=== PATIENT | female | born 1995 | race Caucasian/White ===

== ENCOUNTER 2021-02-19 13:36 | Emergency (ER) | payer OTHER, MEDICAID ==
[~2021-02-19] VITALS: Ht 162.6 cm; Wt 99.8 kg
[~2021-02-19 13:36] MED LIST: ACETAMINOPHEN-1 EAC1 PO; ALBUTEROL2.5 MG/3 M IH; AZITHROMYCIN 2250 MG PO; CARAFATE 1 GM TA1 G1 PO; CELEXA 20 MG TA20 M1; CITRATE OF MAG296 ML PO; DIPHENHIST50 MG PO; DOXYCYCLINE 10100 M1 PO; ELIMITE60 GM TP; FLONASE 0.05%50 MCG NASAL; IRON325 PO; LEVAQUIN 500 M500 MG PO; MEDROLDOSEPACK PO; MOTRIN; NIX TP; NOHOMEMEDICATIONS; NORCO 5-325 TA1 EACH PO; ONDANSETRON HCL4 M3 PO; ORTHO TRI-CYCL1 EAC1; ORTHO TRI-CYCL1 EACH PO; PHENERGAN 25 MG25 M1 PO; PREDNISONE 10 M10 MG PO; PREDNISONE 20 M20 M1 PO; PROAIR HFA8.5 GM INH; PROMETHAZINE D480 ML PO; PROMETHAZINE-D120 ML PO; SARNA ANTI-ITC222 ML TP; TORADOL 10 MG T10 MG PO; TRINATE TABLET1 TAB PO; TYLENOL325 MG PO; ULTRAM 50MG TAB50 MG PO; VENTOLIN HFA 1818 GM INH; VENTOLIN17 GM INH; ZANTAC 150MG T150 M1 PO; ZOFRAN 4 MG ORAL4 MG; ZOFRAN ODT4 MG PO; ZOFRAN4 MG PO; ZPAK PO; ZYRTEC 10 MG TA10 MG PO
[2021-02-19 14:13] LABS: ABSOLUTE EOSINOPHILS 0.1 thou/uL (0.0-0.7); ABSOLUTE LYMPHOCYTES 2.4 thou/uL (0.8-5.3); ABSOLUTE MONOCYTES 0.6 thou/uL (0.0-1.2); ABSOLUTE NEUTROPHILS 5.1 thou/uL (1.6-8.1); BASOPHILS 0.1 %; EOSINOPHILS 1.6 %; HEMATOCRIT 37.8 % (37.0-47.0); HEMOGLOBIN 12.3 gm/dL (12.0-15.0); LYMPHOCYTES 28.4 %; MCH 27.4 pg (26.0-34.0); MCHC 32.5 g/dL (28.0-37.0); MCV 84.4 fL (80.0-100.0); MONOCYTES 7.8 %; MPV 7.1 fl. (7.2-11.1); NUCLEATED RBCS 0 /100WBC; PLATELET COUNT* 394 thou/uL (150-400); POLYS 62.1 %; RBC 4.48 mil/uL (4.20-5.00); RDW-CV 14.5 % (10.5-14.5); WBC 8.3 thou/uL (4.0-11.0)
[2021-02-19 14:39] LABS: CALCIUM 8.8 mg/dL (8.5-10.1); CREATININE 0.6 mg/dL (0.6-1.3); POTASSIUM 4.5 mmol/L (3.5-5.1)
[2021-02-19 14:43] LABS: ALBUMIN 3.5 g/dL (3.4-5.0); TOTAL BILIRUBIN 0.2 mg/dL (<0.1-1.0); TOTAL PROTEIN 7.2 g/dL (6.4-8.2)
[2021-02-19] MEDS ORDERED: SUPER THERAVIT1 EACH (15:00)
[2021-02-19 15:26] LABS: URINE BILIRUBIN NEGATIVE (Negative); URINE BLOOD NEGATIVE (Negative); URINE CLARITY CLOUDY; URINE COLOR YELLOW; URINE GLUCOSE-RANDOM NEGATIVE (Negative); URINE KETONES NEGATIVE (Negative); URINE LEUKOCYTES-REFLEX NEGATIVE (Negative); URINE NITRITE-REFLEX NEGATIVE (Negative); URINE PROTEIN NEGATIVE (Negative); URINE UROBILINOGEN 0.2 E.U./dl (0.2-1.0)
[2021-02-19 15:29] LABS: BACTERIA-REFLEX None Seen /HPF (None Seen); CASTS None Seen /LPF (None Seen); CRYSTALS None Seen /LPF (None Seen); SQUAMOUS NONE SEEN /LPF (0-3); URINE RBC 0-2 Rare /HPF (0-2); URINE WBC-REFLEX None Seen /HPF (0-5)
[2021-02-19 15:30] LABS: AMORPHOUS PHOSPHATES Moderate /LPF (None Seen)
[2021-02-19] MEDS ORDERED: CLEOCIN HCL300 MG PO ×2 (16:08→16:16)
[2021-02-19] MEDS ORDERED: ZOFRAN ODT4 MG PO ×2 (16:08→16:16)
[2021-02-19] MEDS ORDERED: NORCO5 PO ×2 (16:08→16:16)
[2021-02-19 16:21] VITALS: BP 114/55
--- NOTE | 2021-02-20 10:16 | EKG ---
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
== END 2021-02-19 16:22 | disposition home or self-care (01) ==
LOC: M.ERS 13:36
PROVIDERS: Nurse Practitioner Family
DX: K02.9 Dental caries, unspecified (principal); R11.2 Nausea with vomiting, unspecified; R10.30 Lower abdominal pain, unspecified; J45.909 Unspecified asthma, uncomplicated; F17.210 Nicotine dependence, cigarettes, uncomplicated; Z88.0 Allergy status to penicillin; Z87.01 Personal history of pneumonia (recurrent); Z90.49 Acquired absence of other specified parts of digestive tract

== ENCOUNTER 2021-04-12 05:04 | Emergency (ER) | payer OTHER, MEDICAID ==
[~2021-04-12] VITALS: Ht 162.6 cm; Wt 104.3 kg
[~2021-04-12 05:04] MED LIST changes: +CLEOCIN HCL300 MG PO; +NORCO5 PO; +SUPER THERAVIT1 EACH
[2021-04-12 06:08] LABS: URINE BILIRUBIN NEGATIVE (Negative); URINE BLOOD NEGATIVE (Negative); URINE CLARITY CLEAR; URINE COLOR YELLOW; URINE GLUCOSE-RANDOM NEGATIVE (Negative); URINE KETONES NEGATIVE (Negative); URINE LEUKOCYTES-REFLEX NEGATIVE (Negative); URINE NITRITE-REFLEX NEGATIVE (Negative); URINE PROTEIN TRACE (Negative); URINE SPECIFIC GRAVITY 1.015 (1.005-1.030); URINE UROBILINOGEN 0.2 E.U./dl (0.2-1.0)
[2021-04-12 06:10] LABS: ABSOLUTE BASOPHILS 0.1 thou/uL (0.0-0.2); ABSOLUTE EOSINOPHILS 0.2 thou/uL (0.0-0.7); ABSOLUTE LYMPHOCYTES 1.9 thou/uL (0.8-5.3); ABSOLUTE MONOCYTES 0.7 thou/uL (0.0-1.2); ABSOLUTE NEUTROPHILS 11.5 thou/uL (1.6-8.1); BASOPHILS 0.5 %; EOSINOPHILS 1.1 %; HEMOGLOBIN 13.3 gm/dL (12.0-15.0); MCH 28.4 pg (26.0-34.0); MCV 83.6 fL (80.0-100.0); MONOCYTES 4.6 %; MPV 7.6 fl. (7.2-11.1); NUCLEATED RBCS 0 /100WBC; PLATELET COUNT* 451 thou/uL (150-400); POLYS 80.8 %; RBC 4.66 mil/uL (4.20-5.00); RDW-CV 14.6 % (10.5-14.5); WBC 14.3 thou/uL (4.0-11.0)
[2021-04-12 06:15] LABS: CALCIUM 9.2 mg/dL (8.5-10.1); CREATININE 0.6 mg/dL (0.6-1.3); POTASSIUM 3.8 mmol/L (3.5-5.1)
[2021-04-12 06:16] LABS: AMP/METHAMP POSITIVE (Negative); BARBITURATES Negative (Negative); BENZODIAZEPINES Negative (Negative); COCAINE Negative (Negative); METHADONE Negative (Negative); OPIATES POSITIVE (Negative); PCP Negative (Negative); THC POSITIVE (Negative)
[2021-04-12 06:19] LABS: ALBUMIN 3.6 g/dL (3.4-5.0); TOTAL BILIRUBIN 0.6 mg/dL (<0.1-1.0); TOTAL PROTEIN 7.8 g/dL (6.4-8.2)
[2021-04-12 08:35] VITALS: BP 120/68
== END 2021-04-12 08:35 | disposition home or self-care (01) ==
LOC: M.ERS 05:04
PROVIDERS: Personal Emergency Response Attendant
DX: R11.15 Cyclical vomiting syndrome unrelated to migraine (principal); J45.909 Unspecified asthma, uncomplicated; F17.210 Nicotine dependence, cigarettes, uncomplicated; Z90.49 Acquired absence of other specified parts of digestive tract; Z87.01 Personal history of pneumonia (recurrent); Z88.0 Allergy status to penicillin; Z79.899 Other long term (current) drug therapy